=== PATIENT | male | born 1995 | race African-American/Black ===

== ENCOUNTER 2018-01-10 09:50 | Emergency (ER) | payer MEDICAID ==
[~2018-01-10] VITALS: Ht 188 cm; Wt 113.9 kg
--- NOTE | 2018-01-10 10:02 | NUR ---
at bedside to see and examine patient.
--- NOTE | 2018-01-10 10:11 | NUR ---
DCD instructions and prescription given to patient. left room [id number]. ambulatory.
== END 2018-01-10 10:11 | disposition home or self-care (01) ==
LOC: ER 09:50
DX: J06.9 Acute upper respiratory infection, unspecified (principal); J45.909 Unspecified asthma, uncomplicated; Z88.8 Allergy status to other drugs, medicaments and biological substances
CPT/HCPCS: 99283; A4663